=== PATIENT | female | born 1955 | race Caucasian/White ===

== ENCOUNTER 2016-09-06 09:18 | Emergency (ER) | payer OTHER ==
[~2016-09-06] VITALS: Ht 152.4 cm; Wt 66.0 kg
[2016-09-06 09:23] VITALS: Ht 152.4 cm; Wt 66.0 kg
[2016-09-06] MEDS ORDERED: TRIAMCINOLONE ACET 40 MG/ML INJ INJ STA (10:29)
[2016-09-06] MEDS ORDERED: LIDOCAINE 1% (MDV) 20 ML INJ SC ONE (10:30)
[2016-09-06] MEDS ORDERED: ACETAMINOPHEN 325 MG TAB PO ONE (10:30)
--- NOTE | 2016-09-06 10:56 | RADRPT ---
PROCEDURE: CR Right Knee CLINICAL INDICATION: Pain TECHNIQUE: An AP, lateral, and tunnel radiographs were submitted. COMPARISON: None FINDINGS: Osseous Structures: There is mild depression of the lateral tibial plateau which does not appear acu te. The osseous elements otherwise appear intact. Join Spaces: Mild degenerative changes seen about the patellar femoral and lateral femoral tibial yelitza int spaces. There is a small joint effusion in the suprapatellar bursa. Soft Tissues: The soft tissues appear unremarkable. IMPRESSION: 1. Mild depression of the lateral tibial plateau which is not appear acute. 2. Mild osteoarthritic change. 3. Small joint effusion. Physician Raine Date Time Electronically viewed and signed by Physician Raine on 09/06/2016 10:55 /
[2016-09-06] MEDS ORDERED: TRAM50TA2 PO (11:30)
[2016-09-06] MEDS ORDERED: IBUP-1542 PO (11:31)
--- NOTE | 2016-09-06 11:35 | ERD ---
ER Documentation Chief Complaint Date/Time DATE: 09/06/16 TIME: 11:33 Chief Complaint right knee pain x 2 weeks, no injury/trauma HPI 61-year-old female presents with right knee pain for last 2 weeks. She denies any history of inciting events or trauma. She is requesting a steroid injection. She denies fevers, vomiting, shortness breath or chest pain. She has had some intermittent knee pain although it is NSAIDs at home without significant relief. ROS All systems reviewed and are negative except as per history of present illness. Medications Home Meds Active Scripts Ibuprofen* (Motrin*) 600 Mg Tab, 600 MG PO Q6, #20 TAB Prov:CONSTANCE DE LUNA MD 09/06/16 Tramadol HCl (Tramadol HCl) 50 Mg Tablet, 50 MG PO Q4 Y for PAIN, #20 TAB Prov:CONSTANCE DE LUNA MD 09/06/16 Allergies Allergies: Coded Allergies: No Known Allergy (Unverified , 09/06/16) PMhx/Soc Medical and Surgical Hx: pt denies Medical Hx, pt denies Surgical Hx History of Surgery: No Anesthesia Reaction: No Hx Neurological Disorder: No Hx Respiratory Disorders: No Hx Cardiac Disorders: No Hx Psychiatric Problems: No Hx Miscellaneous Medical Probl: No Hx Alcohol Use: No Hx Substance Use: No Hx Tobacco Use: No Smoking Status: Never smoker Physical Exam Vitals Vital Signs Date Time Temp Pulse Resp B/P Pulse Ox O2 Delivery O2 Flow Rate FiO2 09/06/16 09:23 97.6 63 18 168/70 97 Physical Exam Const: [] Alert, [id number] per Head: Atraumatic Eyes: Normal Conjunctiva ENT: Normal External Ears, Nose and Mouth. Neck: Full range of motion..~ No meningismus. Resp: Clear to auscultation bilaterally Cardio: Regular rate and rhythm, no murmurs Abd: Soft, non tender, non distended. Normal bowel sounds Skin: No petechiae or rashes Back: No midline or flank tenderness Ext: No cyanosis, or edema producing tenderness and minimal effusion in the right knee without erythema, warmth, deformities. There is no calf swelling or Homans sign. Neur: Awake and alert Psych: Normal Mood and Affect Results 24 hrs Current Medications Medications (Trade) Dose Ordered Sig/Coco Route PRN Reason Start Time Stop Time Status Last Admin Dose Admin Triamcinolone Acetonide (Kenalog-40) 40 mg ONCE STAT INJ 09/06/16 10:29 09/06/16 10:31 DC Lidocaine (Xylocaine 1% (Mdv) 20 ml) 20 ml ONCE ONCE SC 09/06/16 10:30 09/06/16 10:31 DC Acetaminophen (Tylenol Tab) 650 mg ONCE ONCE PO 09/06/16 10:30 09/06/16 10:31 DC 09/06/16 11:18 Procedures/MDM X-ray right knee 3V Interpreted by me: Bones: [No fracture] Joints: [No dislocation] Foreign body: [None]. Impression abnormal right knee x-ray with degenerative changes Patient will be provided a steroid injection as requested. Patient was advised of the risk of infection, atrophy wishes to proceed. Right knee was prepped with Betadine and alcohol. 2 cc of lidocaine and 30 mg of Kenalog was injected intra-articularly via sterile technique and the patient tolerated procedure well and the wound was dressed. Patient was discharged home with a prescription of tramadol and ibuprofen and instructed to follow-up with primary doctor possible orthopedist for persistent symptoms. She was treated for fevers , redness, new symptoms. Current signs and symptoms do not suggest septic arthritis, fracture, dislocation, DVT. The patient was stable with no new complaints during the ER course. Clinically, there is no current evidence to suggest meningitis, sepsis, acute abdomen, pneumonia, acute coronary syndrome, pulmonary embolism, or any other emergent condition appearing to require further evaluation or hospitalization. The patient should certainly return for any new or worsening symptoms per the aftercare instructions. They should otherwise follow-up with her primary care doctor for reevaluation this week. Departure Diagnosis: Primary Impression: Knee pain Laterality: right Chronicity: acute Qualified Code: M25.561 - Acute pain of right knee Condition: Stable Patient Instructions: What Is Osteoarthritis?, Knee Pain, Uncertain Cause Referrals: [facility] Usted se rivas hecho un examen mdico de control que le indica que no est en ilya condicin que requiera tratamiento urgente en el Departamento de Emergencia. Un estudio ms profundo y el tratamiento de rosen condicin pueden esperar sin ningn riesgo hasta que usted sea atendida/o en el consultorio de rosen mdico o ilya cl mariah. Es responsabilidad suya arreglar ilya [place] para el seguimiento del emeka. MANEJO DE CONDICIONES NO URGENTES EN EL FUTURO 1) Si usted tiene un mdico de atencin primaria: Usted debera llamar a rosen mdico de atencin primaria antes de venir al departamento de emergencia. Despus de las horas de consultorio, rosen doctor o rosen asociado/a est disponible por telfono. El mdico o enfermero de dante en el servicio telefnico puede asesorarle por kelsey medio para atender el problema, o emeka contrario se puede programar ilya [place]. 2) Si usted no tiene un mdico de atencin primaria: Llame al mdico o clnica de referencia que aparece abajo lore las horas de consultorio para hacer ilya [place] para que le vean. CLINICAS: [facility] [phone] [id number] [facility] [phone] [address] [facility]. [facility] [phone] [address] [facility]. [facility] [phone] [address] [facility]. [place] [phone] [address] [facility]. [phone] [address] Additional Instructions: X RAY TIENE ARTRITIS. Cheque otro vez con rosen doctor primario en el proximo ragland or regresa para mas o nueva simptomas. CONSTANCE DE LUNA MD September 06, 2016 11:35
== END 2016-09-06 11:55 | disposition home or self-care (01) ==
LOC: FTE 09:18
DX: M25.561 Pain in right knee (principal)
CPT/HCPCS: 73562; Z7502; Z7610

== ENCOUNTER 2018-07-10 06:05 | Day surgery (SDC) | payer OTHER ==
[~2018-07-10] VITALS: Ht 152.4 cm; Wt 64.7 kg
[~2018-07-10 06:05] MED LIST: IBUP-1542 PO; TRAM50TA2 PO
[2018-07-10 06:36] VITALS: Ht 152.4 cm; Wt 64.7 kg
[2018-07-10 07:39] VITALS: BP 149/67; PULSE 58; RESP 18
[2018-07-10] MEDS ORDERED: ASPI-817 PO (07:41)
[2018-07-10] MEDS ORDERED: GLIPIZIDE PO (07:41)
[2018-07-10] MEDS ORDERED: SIMVASTATIN PO (07:41)
[2018-07-10] MEDS ORDERED: MIDAZOLAM 1 MG/ML 2 ML INJ ONE ×2 (08:55)
[2018-07-10] MEDS ORDERED: FENTAnyl 50 MCG/ML VIAL ONE (08:55)
[2018-07-10 09:02] VITALS: BP 127/61; RESP 20
== END 2018-07-10 15:00 | disposition home or self-care (01) ==
LOC: GIL 06:05
PROVIDERS: ATTEND Internal Medicine Gastroenterology
DX: Z12.11 Encounter for screening for malignant neoplasm of colon (principal); E11.9 Type 2 diabetes mellitus without complications
CPT/HCPCS: 45378; 82962; J2250; J3010; Z7610